=== PATIENT | male | born 1950 | race Caucasian/White ===

== ENCOUNTER → 2020-10-11 | Outpatient (CLI) | payer OTHER ==
[~2020-10-11] MED LIST: ASPIRIN81 MG PO; ATORVASTATIN CA20 MG PO; BRILINTA 90 MG90 MG PO; FISH OIL 1,0001 EAC1 PO; GLUCOSAMINE1000 MG PO; LOPRESSOR 25 MG25 MG PO; NITROGLYCERIN0.4 MG SL; ZOCOR 40 MG TAB40 MG GT; ZYLOPRIM 300 M300 MG PO
== END ==
LOC: KOH-I 14:21
DX: M47.26 Other spondylosis with radiculopathy, lumbar region (principal); M48.07 Spinal stenosis, lumbosacral region; M47.817 Spondylosis without myelopathy or radiculopathy, lumbosacral region
CPT/HCPCS: 72110

== ENCOUNTER 2021-04-09 15:58 | Inpatient (IN) | payer OTHER ==
[~2021-04-09] VITALS: Ht 172.7 cm; Wt 97.0 kg
[2021-04-09 16:49] LABS: HEMOGLOBIN 16.3 gm/dl (14.0-17.5); RED BLOOD COUNT 4.71 M/UL (4.20-5.50); WHITE BLOOD COUNT 13.4 K/UL (4.5-11.0)
[2021-04-09 17:11] LABS: BUN/CREATININE RATIO 15 (0-10)
[2021-04-10] MEDS ORDERED: ZOCOR 40 MG TAB40 MG GT (02:32)
[2021-04-10] MEDS ORDERED: ZYLOPRIM 300 M300 MG PO (02:32)
[2021-04-10] MEDS ORDERED: ASPIRIN81 MG PO (02:33)
[2021-04-10] MEDS ORDERED: GLUCOSAMINE1000 MG PO (02:33)
[2021-04-10] MEDS ORDERED: FISH OIL 1,0001 EAC1 PO (02:33)
[2021-04-10 04:29] LABS: HEMOGLOBIN 15.4 gm/dl (14.0-17.5); RED BLOOD COUNT 4.48 M/UL (4.20-5.50); WHITE BLOOD COUNT 12.2 K/UL (4.5-11.0)
[2021-04-10 04:53] LABS: BUN/CREATININE RATIO 19 (0-10)
[2021-04-11] MEDS ORDERED: LOPRESSOR 25 MG25 MG PO (08:48)
[2021-04-11] MEDS ORDERED: ATORVASTATIN CA20 MG PO (08:48)
[2021-04-11] MEDS ORDERED: NITROGLYCERIN0.4 MG SL (08:48)
[2021-04-11] MEDS ORDERED: BRILINTA 90 MG90 MG PO (08:48)
== END 2021-04-11 11:15 | disposition home or self-care (01) | DRG 247 ==
LOC: ER1 15:58 → CDU 20:03 → PROG CARE 20:03
PROVIDERS: Physician Assistant; ADMIT Internal Medicine
PROC: 027034Z Dilation of Coronary Artery, One Artery with Drug-eluting Intraluminal Device, Percutaneous Approach (ICD-10-PCS; principal; 2021-04-10)
PROC: 4A023N6 Measurement of Cardiac Sampling and Pressure, Right Heart, Percutaneous Approach (ICD-10-PCS; 2021-04-10)
PROC: B2111ZZ Fluoroscopy of Multiple Coronary Arteries using Low Osmolar Contrast (ICD-10-PCS; 2021-04-10)
DX: I21.4 Non-ST elevation (NSTEMI) myocardial infarction (principal); I47.1 Supraventricular tachycardia; Q25.0 Patent ductus arteriosus; I25.10 Atherosclerotic heart disease of native coronary artery without angina pectoris; E78.5 Hyperlipidemia, unspecified; E66.9 Obesity, unspecified; R73.03 Prediabetes; Z20.822 Contact with and (suspected) exposure to COVID-19; M10.9 Gout, unspecified; F17.210 Nicotine dependence, cigarettes, uncomplicated; I24.9 Acute ischemic heart disease, unspecified; Z82.49 Family history of ischemic heart disease and other diseases of the circulatory system; Z79.82 Long term (current) use of aspirin; Z95.5 Presence of coronary angioplasty implant and graft; Z68.30 Body mass index [BMI] 30.0-30.9, adult
CPT/HCPCS: 36415; 71045; 80048; 80053; 80061; 82550; 82553; 83036; 83874; 84484; 85025; 85610; 85730; 93005; 99152; 99153; 99285; C1725; C1769; C1874; C1887; C9600; J0461; J0583; J1644; J2250; J3010; J7040; Q9967; U0002